=== PATIENT | female | born 1955 | race Caucasian/White ===

== ENCOUNTER → 2017-12-16 | Outpatient (CLI) | payer BC ==
--- NOTE | 2017-12-16 22:37 | XR ---
EXAMINATION TYPE: XR knee limited LT DATE OF EXAM: 12/16/2017 COMPARISON: NONE HISTORY: 62-year-old female with left knee pain after fall 3 weeks ago TECHNIQUE: 2 views FINDINGS: Moderate knee joint effusion. There is tricompartmental degenerative spurring with at least mild to m oderate medial compartment joint space narrowing and probably moderate joint space narrowing in the p atellofemoral compartment. Extensor mechanism is intact. No acute fracture or dislocation seen. IMPRESSION: 1. Tricompartmental osteoarthrosis. No acute osseous abnormality seen. 2. Moderate knee joint effusion. If concern for internal derangement or occult osseous injury, MRI ca n be performed.
== END | disposition home or self-care (01) ==
LOC: RADXRYALE 12:48
PROVIDERS: ATTEND Internal Medicine
DX: M17.12 Unilateral primary osteoarthritis, left knee (principal); M25.462 Effusion, left knee

== ENCOUNTER → 2020-01-02 | Outpatient (CLI) | payer MEDICARE, BC ==
--- NOTE | 2020-01-02 10:59 | CT ---
EXAMINATION TYPE: CT brain wo con DATE OF EXAM: 01/02/2020 COMPARISON: None HISTORY: Multiple recent falls, ALEXIS CT DLP: 1121 mGycm Automated exposure control for dose reduction was used. TECHNIQUE: CT scan of the head is performed without contrast. FINDINGS: There is no acute intracranial hemorrhage or midline shift identified. There is diffuse v entricular and sulcal prominence consistent with diffuse age-related cerebral atrophy. There are few areas of low-attenuation in the periventricular white matter most commonly related to sequela of chr onic small vessel ischemic change. The globes are intact and the visualized sinuses are clear. Front al sinuses are incidentally noted to be aplastic. Partially empty sella turcica seen. IMPRESSION: No acute intracranial hemorrhage or midline shift. There mild burden nonspecific white matter change, most commonly on the basis of chronic microangiopathy.
--- NOTE | 2020-01-02 11:30 | XR ---
EXAMINATION TYPE: XR shoulder complete RT DATE OF EXAM: 01/02/2020 COMPARISON: NONE HISTORY: Pain TECHNIQUE: Shoulder examined in 3 projections FINDINGS: The humeral head articulates with the glenoid. The acromio-clavicular junction is normal. No acute fractures or dislocations are evident. A follow up study can be performed 7-10 days from acute trauma for continued pain. IMPRESSION: 1. Normal three-view right Shoulder
--- NOTE | 2020-01-02 11:32 | XR ---
EXAMINATION TYPE: XR elbow complete RT DATE OF EXAM: 01/02/2020 COMPARISON: None HISTORY: Left elbow pain TECHNIQUE: Three-view right elbow FINDINGS: Radial head aligns normally with the humerus. No acute fracture or dislocation is evident. No subacute fractures are evident. Anterior fat pad is normal. No elevation of posterior fat pad is e vident. Follow-up exams can be performed 7-10 days from acute trauma for continued pain. IMPRESSION: 1. Normal three-view right elbow
== END | disposition home or self-care (01) ==
LOC: RADCTMAIN 10:25
PROVIDERS: ATTEND Internal Medicine
DX: R90.89 Other abnormal findings on diagnostic imaging of central nervous system (principal); M25.522 Pain in left elbow; M25.512 Pain in left shoulder
CPT/HCPCS: 70450

== ENCOUNTER → 2020-07-09 | Outpatient (CLI) | payer MEDICARE, BC ==
--- NOTE | 2020-07-09 18:42 | US ---
EXAMINATION TYPE: US venous doppler duplex LE RT DATE OF EXAM: 07/09/2020 6:11 PM COMPARISON: [facility] 2012 CLINICAL HISTORY: I80.9 Phlebitis and thrombophlebitis of unspecified. Pain in right leg x 5 months. Patient on coumadin. SIDE PERFORMED: Right TECHNIQUE: The lower extremity deep venous system is examined utilizing real time linear array sonog joya with graded compression, doppler sonography and color-flow sonography. VESSELS IMAGED: External Iliac Vein (EIV) Common Femoral Vein Deep Femoral Vein Greater Saphenous Vein * Femoral Vein Popliteal Vein Small Saphenous Vein * Proximal Calf Veins (* superficial vessels) Right Leg: No evidence of DVT in veins imaged at this time from prox calf veins to EIV. IMPRESSION: 1. Right lower extremity ultrasound negative for deep venous thrombosis.
== END | disposition home or self-care (01) ==
LOC: RADUSMAIN 17:35
PROVIDERS: ATTEND Orthopaedic Surgery
DX: M25.561 Pain in right knee (principal); I80.9 Phlebitis and thrombophlebitis of unspecified site; M79.661 Pain in right lower leg

== ENCOUNTER → 2021-12-18 | Outpatient (CLI) | payer MEDICARE ==
--- NOTE | 2021-12-18 12:21 | XR ---
EXAMINATION TYPE: XR chest 2V DATE OF EXAM: 12/18/2021 COMPARISON: None HISTORY: 66-year-old female [id number], cough TECHNIQUE: Frontal and lateral views FINDINGS: Heart is mildly enlarged. Possible bilateral hilar prominence related to large central pulmonary nikole thong. Double convex marginated opacity projecting at the right heart border, possible dilated left at rium. Some strandy atelectasis in the lower lungs. No consolidation or pleural effusion. Mild to mode rate degenerative disc disease throughout the thoracic spine with accentuated thoracic kyphosis. IMPRESSION: Mild cardiomegaly. Possible underlying pulmonary arterial hypertension. Some strandy bibasilar atelec tasis. Otherwise, no acute process seen.
== END | disposition home or self-care (01) ==
LOC: RADXRYALE 11:39
PROVIDERS: ATTEND Internal Medicine
DX: I51.7 Cardiomegaly (principal); J98.11 Atelectasis
CPT/HCPCS: 71046

== ENCOUNTER → 2022-01-02 | Outpatient (CLI) | payer MEDICARE ==
[2022-01-02 16:00] LABS: African American GFR (CKD) 106.5 (60.0-200.0); Anion Gap 13.3 mmol/L (10.00-18.00); Blood Urea Nitrogen 11.4 mg/dL (9.0-27.0); Carbon Dioxide 20.6 mmol/L (20.0-27.5); Non-African American GFR(CKD) 91.9 (60.0-200.0); Potassium 4.4 mmol/L (3.5-5.5)
[2022-01-02 16:06] LABS: HCT 40.8 % (37.2-46.3); HGB 12.5 g/dL (12.0-15.0); MCH 28.7 pg (27.0-32.0); MCHC 30.6 g/dL (32.0-37.0); MCV 93.6 fL (80.0-97.0); Mean Platelet Volume 10.6 fL (9.5-12.2); NRBC Per 100 WBC 0 /100 WBCS (0.0-0.0); Platelet Count 346 X 10*3/uL (140-440); RBC 4.36 X 10*6/uL (4.10-5.20); RDW 14.5 % (11.5-14.5); WBC 9.53 X 10*3/uL (4.50-10.00)
[2022-01-03 13:47] LABS: Coronavirus SARS CoV-2 Not Detected (Not Detected)
== END | disposition home or self-care (01) ==
LOC: LABPAT 08:42
PROVIDERS: ATTEND Internal Medicine Cardiovascular Disease
DX: Z01.812 Encounter for preprocedural laboratory examination (principal); Z20.822 Contact with and (suspected) exposure to COVID-19; I48.0 Paroxysmal atrial fibrillation
CPT/HCPCS: 80051; 82565; 84520; 85027; U0003; U0005

== ENCOUNTER → 2022-01-07 | Day surgery (SDC) | payer MEDICARE ==
[2022-01-05 15:57] VITALS: BMI 42.5
[~2022-01-07] MED LIST: MIDAZOLAM 2 MG/2 ML VIAL IV ONE; SODIUM CHLORIDE 0.9% 500 ML 500 ML IV ONE; fentaNYL (PF) 50 MCG/ML 2 ML AMP IV ONE; fentaNYL (PF) 50 MCG/ML 2 ML AMP ONE
[2022-01-07 07:45] LABS: Glucose,Whole Blood 117 mg/dL (75-99)
[2022-01-07 07:58] LABS: INR 2.2 (<1.2); Prothrombin Time 21.7 sec (9.0-12.0)
[2022-01-07] MEDS: BENZOCAINE SPRAY 1 CAN TOPICAL ONE ×2 (08:53→09:03)
[2022-01-07 09:02] VITALS: RESP 16
[2022-01-07 09:54] VITALS: PULSE 58
[2022-01-07 10:45] VITALS: BP 145/61
--- NOTE | 2022-01-12 13:37 | ECHOT ---
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 PROCEDURE NOTE: After obtaining informed consent, transesophageal echocardiogram was performed in left lateral position using an Omniplane probe. Local and IV sedation were obtained with xylocaine spray, intravenous Versed and fentanyl. Patient tolerated the procedure well without any obvious immediate complications. Total sedation time was 10 minutes. FINDINGS: 1. Mitral valve appears thickened and the leaflet tips are calcified, anterior leaflet more than the posterior. There is restriction of the posterior leaflet mobility. The mean gradient across the valve is 10 mm with a peak gradient of 20 mm, consistent with moderate mitral stenosis. There is mild to moderate eccentric jet of mitral regurgitation noted. 2. Aortic valve is a 3-leaflet valve and appears mildly calcified with severe aortic regurgitation. Aortic root measures within normal limits. 3. Tricuspid valve is anatomically normal. There is mild tricuspid regurgitation noted. 4. There is no evidence of ohnj-yf-dyivc shunt by color-flow Doppler or peyci-di-mloy shunt by agitated saline contrast study across the interatrial septum. 5. Left atrium appears moderately enlarged. 6. Right atrium appears mildly enlarged. 7. Right ventricle is mildly enlarged. CONCLUSIONS: 1. Rheumatic heart disease with moderate mitral stenosis and severe aortic regurgitation. There is mild to moderate mitral regurgitation also noted. 2. Left atrium is enlarged. 3. Mitral valve leaflets appear thickened and calcified, anterior leaflet more than the posterior. There is restriction in the leaflet mobility. PLAN: Patient will undergo cardiac catheterization and will be referred for mitral and aortic valve surgery. She has moderate pulmonary hypertension with an RVSP of around 40 mm. MMODL / IJN: [id number] /
== END ==
LOC: CATHCVL 07:20
PROVIDERS: ATTEND Internal Medicine Cardiovascular Disease
DX: I27.20 Pulmonary hypertension, unspecified (principal); I48.0 Paroxysmal atrial fibrillation; Z79.01 Long term (current) use of anticoagulants; Z86.73 Personal history of transient ischemic attack (TIA), and cerebral infarction without residual deficits; I10 Essential (primary) hypertension; E78.2 Mixed hyperlipidemia; Z79.84 Long term (current) use of oral hypoglycemic drugs; Z79.52 Long term (current) use of systemic steroids; Z79.899 Other long term (current) drug therapy
CPT/HCPCS: 93312; 93320; 93325; 85610; J2250; J3010

== ENCOUNTER 2022-01-21 08:26 | Day surgery (SDC) | payer MEDICARE ==
[2022-01-19 13:49] VITALS: BMI 42.3
[~2022-01-21 08:26] MED LIST changes: +ALPRAZolam 0.25 MG TAB PO PRN; +ALPRAZolam 0.5 MG TAB PO PRN; +ASPIRIN 325 MG TAB PO STA; +ATORVASTATIN 80 MG TAB PO STA; -MIDAZOLAM 2 MG/2 ML VIAL IV ONE; +NITROGLYCERIN SL TABS 0.4 MG TAB SUBLINGUAL PRN; +SODIUM CHLORIDE 0.9% 1,000 ML in EMPTY BAG 1 BAG IV SCH; -SODIUM CHLORIDE 0.9% 500 ML 500 ML IV ONE; -fentaNYL (PF) 50 MCG/ML 2 ML AMP IV ONE; -fentaNYL (PF) 50 MCG/ML 2 ML AMP ONE
[2022-01-21] MEDS ORDERED: SODIUM CHLORIDE 0.9% 1,000 ML IV ONE (08:41)
[2022-01-21 08:53] LABS: Glucose,Whole Blood 119 mg/dL (75-99)
[2022-01-21 09:19] LABS: Prothrombin Time 10.4 sec (9.0-12.0)
[2022-01-21] MEDS ORDERED: LIDOCAINE 1% INJ 10MG/ML (20 ML MDV) ONE (11:02)
[2022-01-21] MEDS ORDERED: fentaNYL (PF) 50 MCG/ML 2 ML AMP ONE (11:02)
[2022-01-21] MEDS ORDERED: HEPARIN SODIUM 1,000 UN/ML (10ML VL) ONE (11:03)
[2022-01-21] MEDS ORDERED: VERAPAMIL 2.5 MG/ML 2 ML AMP ONE (11:03)
[2022-01-21] MEDS ORDERED: MIDAZOLAM 2 MG/2 ML VIAL IV ONE (11:28)
[2022-01-21] MEDS ORDERED: fentaNYL (PF) 50 MCG/ML 2 ML AMP IV ONE (11:28)
[2022-01-21] MEDS ORDERED: LIDOCAINE 1% INJ 10MG/ML (20 ML MDV) SQ ONE (11:29)
[2022-01-21 11:58] LABS: O2 Sat Blood Gas 65.5 %
[2022-01-21 12:00] LABS: O2 Sat Blood Gas 65.8 %
[2022-01-21 12:01] LABS: O2 Sat Blood Gas 98.5 %
[2022-01-21 12:03] LABS: O2 Sat Blood Gas 67.8 %
[2022-01-21] MEDS ORDERED: ENALAPRILAT 1.25 MG/ML 1 ML VIAL ONE (12:08)
[2022-01-21] MEDS ORDERED: RX INFO: IV CONTRAST WAS GIVEN 1 EACH MISC MISCELLANE PRN (12:10)
[2022-01-21] MEDS ORDERED: SODIUM CHLORIDE 0.9% 1,000 ML IV SCH (12:15)
[2022-01-21] MEDS ORDERED: ENALAPRILAT 1.25 MG/ML 1 ML VIAL IV ONE (12:17)
--- NOTE | 2022-01-21 14:06 | CC ---
CARDIAC CATHETERIZATION REPORT RIGHT AND LEFT HEART CATHETERIZATION NOTE: INDICATION: Multivalvular heart disease, including aortic regurgitation and mitral stenosis secondary to rheumatic heart disease. PROCEDURE NOTE: After obtaining informed consent, right and left heart catheterizations were performed via the right and left femoral arteries using standard catheters. Right and left size 4 Monica catheters were used to engage the right and left coronary arteries and a pigtail catheter was used to obtain hemodynamics and aortogram. The right heart catheterization was performed using a [place]-Janneth catheter. Patient tolerated the procedure well without any obvious immediate complications. Total sedation time was 59 minutes. FINDINGS: HEMODYNAMICS: The left ventricular end-diastolic pressure was 11 mm. There is no significant gradient across the aortic valve. LEFT VENTRICULOGRAM: Left ventriculogram was not performed. AORTOGRAM: Aortogram showed severe aortic regurgitation. SELECTIVE INJECTION OF THE CORONARIES: Left main coronary artery is a short vessel and is free of stenosis. It divides into left anterior descending coronary artery and circumflex coronary artery. LAD and its branches, circumflex coronary artery and its branches are free of significant stenosis. Right coronary artery is a dominant vessel and is free of significant disease. RIGHT HEART CATHETERIZATION: The cardiac output by the thermodilution technique was 5.6 and the cardiac index was 2.84. There is no evidence of yyvv-ld-tkezu or mezgi-sm-gwme shunt. Saturations: One showed a femoral arterial saturation of 98%, PA saturation of 65.8, RV saturation of 65.8 and the RA saturation of 62.8. Cardiac output using the Bogdan method was 5.54 with an index of 2.79. The mean right atrial pressure was 9 mm. RV systolic pressure was 50 mm while the the diastolic pressure was 18 mm. The PA systolic was 48 mm while the diastolic was 17 mm. Pulmonary capillary wedge pressure was 20 mm. CONCLUSIONS: 1. Normal coronaries. 2. Evidence of pulmonary hypertension. 3. Ascending aortic aneurysm. PLAN: I am going to refer the patient for aortic valve replacement, either mitral valvuloplasty or mitral valve replacement. I am going to talk to the patient in my office and decide on further course of action. MMODL / IJN: [id number] /
[2022-01-21 19:12] VITALS: BP 146/46; PULSE 59; RESP 18; TEMP 97.7
== END 2022-01-21 20:33 | disposition home or self-care (01) ==
LOC: CATHCVL 08:26 → 6NMEDSUR 13:29 → CATHCVL 20:33
PROVIDERS: ATTEND Internal Medicine Cardiovascular Disease
DX: I08.0 Rheumatic disorders of both mitral and aortic valves (principal); I10 Essential (primary) hypertension; I27.20 Pulmonary hypertension, unspecified; Z79.899 Other long term (current) drug therapy; Z79.01 Long term (current) use of anticoagulants
CPT/HCPCS: 93460; 93567; 85018; 82810; 85610; C1769 ×2; C1894 ×2; J2250; J2001; J3010

== ENCOUNTER 2022-04-27 19:33 | Observation (INO) | payer MEDICARE ==
[2022-04-28] LABS: HCT 28.5 % (34.0-46.0); HGB 8.9 gm/dL (11.4-16.0); Hypochromasia Marked; MCH 29.3 pg (25.0-35.0); MCHC 31.4 g/dL (31.0-37.0); MCV 93.4 fL (80.0-100.0); Mean Platelet Volume 7.8; Platelet Count 347 k/uL (150-450); Poikilocytosis Slight; RBC 3.05 m/uL (3.80-5.40); RDW 15.7 % (11.5-15.5); WBC 13.9 k/uL (3.8-10.6)
[2022-04-28 00:07] LABS: INR 4.8 (<1.2); Partial Thromboplastin Time 37.1 sec (22.0-30.0); Prothrombin Time 48.2 sec (9.0-12.0)
--- NOTE | 2022-04-28 00:10 | XR ---
EXAMINATION TYPE: XR chest 2V DATE OF EXAM: 04/28/2022 COMPARISON: 12/18/2021 HISTORY: Valve surgery TECHNIQUE: Single view FINDINGS: There are sternal wires. Heart is enlarged. There is cardiac valve surgery. There is mild p ulmonary congestion. There is blunting of the costophrenic angles. IMPRESSION: There are bilateral pleural effusions and basilar atelectasis which is new compared to ol d exam. Heart increased compared to old exam. There is probably minimal heart failure.
[2022-04-28 00:12] LABS: ALT 19 U/L (4-34); AST 39 U/L (14-36); African American GFR (CKD) >90 (>60 ml/min/1.73 sqM); Albumin 3.8 g/dL (3.5-5.0); Alkaline Phosphatase 88 U/L (38-126); Anion Gap 8 mmol/L; Blood Urea Nitrogen 7 mg/dL (7-17); Calcium 8.3 mg/dL (8.4-10.2); Carbon Dioxide 27 mmol/L (22-30); Chloride 100 mmol/L (98-107); Glucose 110 mg/dL (74-99); Non-African American GFR(CKD) 80 (>60 ml/min/1.73 sqM); Potassium 4.1 mmol/L (3.5-5.1); Sodium 135 mmol/L (137-145); Total Bilirubin 0.9 mg/dL (0.2-1.3)
[2022-04-28] MEDS ORDERED: NALOXONE 0.4 MG/ML 1 ML VIAL IV PRN (00:50)
[2022-04-28] MEDS ORDERED: MORPHINE SULFATE 4 MG/ML SYRINGE IV PRN (00:50)
[2022-04-28] MEDS ORDERED: ONDANSETRON 4 MG/2 ML VIAL IVP PRN (00:50)
--- NOTE | 2022-04-28 00:53 | ED ---
Recheck HPI - General Source: patient Mode of arrival: ambulatory Limitations: no limitations <Mayo Garcia - Last Filed: 04/28/22 00:53> <Olga Wood - Last Filed: 04/28/22 03:45> - General Chief Complaint: Recheck/Abnormal Lab/Rx Stated Complaint: Low Hemoglobin, Open Heart Surgery on 04/13 Time Seen by Provider: 04/27/22 22:56 - History of Present Illness Initial Comments: Patient is a 66-year-old female presenting stating that her PCP sent her for low hemoglobin. History of diabetes, hypertension, hyperlipidemia. Patient received an aortic and mitral valve replacement on 04/13 at [facility]. Patient was discharged from the hospital yesterday, she is currently on warfarin. Patient saw Dr. Pang in the office today, patient states that Dr. Pang called her this evening stating that her hemoglobin was low and she needed to present to the ER for further evaluation. Patient is complaining of some incision discomfort, but no chest pain. She admits to some shortness of breath on exertion. She denies any nausea, vomiting, abdominal pain, diaphoresis, headache, vision changes, back pain. (Olga Wood) - Related Data Home Medications Medication Instructions Recorded Confirmed Ascorbic Acid [Vitamin C] 500 mg PO DAILY 01/05/22 01/21/22 Atorvastatin [Lipitor] 20 mg PO DAILY 01/05/22 01/21/22 Magnesium 200 mg PO DAILY 01/05/22 01/21/22 Omeprazole 20 mg PO DAILY 01/05/22 01/21/22 Warfarin [Coumadin] 5 mg PO MOWEFR 01/05/22 01/19/22 Warfarin [Coumadin] 7.5 mg PO SUTUTHSA 01/05/22 01/21/22 Zinc 50 mg PO DAILY 01/05/22 01/21/22 atenoloL [Tenormin] 25 mg PO DAILY 01/05/22 01/21/22 metFORMIN HCL 500 mg PO DAILY 01/05/22 01/21/22 Allergies Allergy/AdvReac Type Severity Reaction Status Date / Time latex Allergy Rash/Hives Verified 04/27/22 21:33 Review of Systems ROS Other: All systems not noted in ROS Statement are negative. <Mayo Garcia - Last Filed: 04/28/22 00:53> ROS Other: All systems not noted in ROS Statement are negative. <Olga Wood - Last Filed: 04/28/22 03:45> ROS Statement: Those systems with pertinent positive or pertinent negative responses have been documented in the HPI. Past Medical History Past Medical History: CVA/TIA, Diabetes Mellitus, GERD/Reflux, Hypertension Additional Past Medical History / Comment(s): NUMEROUS MINI STROKES History of Any Multi-Drug Resistant Organisms: None Reported Past Surgical History: Section, Joint Replacement Additional Past Surgical History / Comment(s): LT TKA, BILAT KNEE ARTHROSCOPY, FCO-01/07/22, COLONOSCOPY, OPEN HEART Past Anesthesia/Blood Transfusion Reactions: No Reported Reaction Past Psychological History: No Psychological Hx Reported Smoking Status: Never smoker Past Alcohol Use History: None Reported - Past Family History Mother Family Medical History: Cancer <Mayo Garcia - Last Filed: 04/28/22 00:53> General Exam Limitations: no limitations <Mayo Garcia - Last Filed: 04/28/22 00:53> Limitations: no limitations General appearance: alert, in no apparent distress Head exam: Present: atraumatic, normocephalic, normal inspection Eye exam: Present: normal appearance, EOMI. Absent: scleral icterus, periorbital swelling Neck exam: Present: normal inspection Respiratory exam: Present: normal lung sounds bilaterally. Absent: respiratory distress, wheezes, rales, rhonchi, stridor Cardiovascular Exam: Present: regular rate, normal rhythm, clicks. Absent: rubs, gallop Neurological exam: Present: alert, oriented X3, CN II-XII intact Psychiatric exam: Present: normal affect, normal mood Skin exam: Present: warm, dry, normal color, other (Surgical scar over sternum). Absent: rash <Olga Wood - Last Filed: 04/28/22 03:45> Course Vital Signs 04/27/22 04/28/22 21:31 01:37 Temperature 97.8 F Pulse Rate 97 91 Respiratory 18 18 Rate Blood Pressure 123/69 137/82 O2 Sat by Pulse 100 96 Oximetry Medical Decision Making - Lab Data Result diagrams: 04/27/22 23:54 04/27/22 23:54 <Mayo Garcia - Last Filed: 04/28/22 00:53> - Lab Data Result diagrams: 04/27/22 23:54 04/27/22 23:54 <Olga Wood - Last Filed: 04/28/22 03:45> - Medical Decision Making Patient is a 66-year-old female who presented to the ER per her PCP's recommendation. She received an aortic and mitral valve replacement on 04/13 [facility], she was discharged yesterday. She saw Dr. Pang in the office and had labs drawn today, she was called this evening I Dr. Pang's office who said that her hemoglobin was low and she needed to report to the ER. Patient is currently on warfarin. She is not complaining of any chest pain. She admits to discomfort over her incision. She admits to some shortness of breath on exertion. On examination clicks are heard. Hemoglobin is 8.9. INR is 4.8. PTT is 48.2. A PTT is 37.1. Troponin is 0.274. EKG shows sinus rhythm with rate of 92, with inverted T waves in V1, V2, V3. X-ray shows bilateral pleural effusions and basilar atelectasis, there is probably mild h eart failure. Patient will be admitted, cardiology is consulted. I discussed this case with my attending Dr. Garcia. (Olga Wood) - Lab Data Lab Results 04/27/22 04/27/22 04/27/22 Range/Units 23:54 23:54 23:54 WBC 13.9 H (3.8-10.6) k/uL RBC 3.05 L (3.80-5.40) m/uL Hgb 8.9 L (11.4-16.0) gm/dL Hct 28.5 L (34.0-46.0) % MCV 93.4 (80.0-100.0) fL MCH 29.3 (25.0-35.0) pg MCHC 31.4 (31.0-37.0) g/dL RDW 15.7 H (11.5-15.5) % Plt Count 347 (150-450) k/uL MPV 7.8 Neutrophils % (Manual) 79 % Band Neuts % (Manual) 1 % Lymphocytes % (Manual) 13 % Monocytes % (Manual) 5 % Eosinophils % (Manual) 2 % Neutrophils # (Manual) 11.10 H (1.3-7.7) k/uL Lymphocytes # (Manual) 1.81 (1.0-4.8) k/uL Monocytes # (Manual) 0.70 (0-1.0) k/uL Eosinophils # (Manual) 0.28 (0-0.7) k/uL Nucleated RBCs 0 (0-0) /100 WBC Manual Slide Review Performed Polychromasia Present Hypochromasia Marked Poikilocytosis Slight Anisocytosis (manual) Present PT (9.0-12.0) sec INR (<1.2) APTT (22.0-30.0) sec Sodium 135 L (137-145) mmol/L Potassium 4.1 (3.5-5.1) mmol/L Chloride 100 (98-107) mmol/L Carbon Dioxide 27 (22-30) mmol/L Anion Gap 8 mmol/L BUN 7 (7-17) mg/dL Creatinine 0.77 (0.52-1.04) mg/dL Est GFR (CKD-EPI)AfAm >90 (>60 ml/min/1.73 sqM) Est GFR (CKD-EPI)NonAf 80 (>60 ml/min/1.73 sqM) Glucose 110 H (74-99) mg/dL Plasma Lactic Acid Ar 1.1 (0.7-2.0) mmol/L Calcium 8.3 L (8.4-10.2) mg/dL Total Bilirubin 0.9 (0.2-1.3) mg/dL AST 39 H (14-36) U/L ALT 19 (4-34) U/L Alkaline Phosphatase 88 (38-126) U/L Troponin I (0.000-0.034) ng/mL NT-Pro-B Natriuret Pep pg/mL Total Protein 7.0 (6.3-8.2) g/dL Albumin 3.8 (3.5-5.0) g/dL Blood Type Blood Type Confirm Blood Type Recheck Bld Type Recheck Status Antibody Screen Spec Expiration Date 04/27/22 04/27/22 04/27/22 Range/Units 23:54 23:54 23:54 WBC (3.8-10.6) k/uL RBC (3.80-5.40) m/uL Hgb (11.4-16.0) gm/dL Hct (34.0-46.0) % MCV (80.0-100.0) fL MCH (25.0-35.0) pg MCHC (31.0-37.0) g/dL RDW (11.5-15.5) % Plt Count (150-450) k/uL MPV Neutrophils % (Manual) % Band Neuts % (Manual) % Lymphocytes % (Manual) % Monocytes % (Manual) % Eosinophils % (Manual) % Neutrophils # (Manual) (1.3-7.7) k/uL Lymphocytes # (Manual) (1.0-4.8) k/uL Monocytes # (Manual) (0-1.0) k/uL Eosinophils # (Manual) (0-0.7) k/uL Nucleated RBCs (0-0) /100 WBC Manual Slide Review Polychromasia Hypochromasia Poikilocytosis Anisocytosis (manual) PT 48.2 H (9.0-12.0) sec INR 4.8 H (<1.2) APTT 37.1 H (22.0-30.0) sec Sodium (137-145) mmol/L Potassium (3.5-5.1) mmol/L Chloride (98-107) mmol/L Carbon Dioxide (22-30) mmol/L Anion Gap mmol/L BUN (7-17) mg/dL Creatinine (0.52-1.04) mg/dL Est GFR (CKD-EPI)AfAm (>60 ml/min/1.73 sqM) Est GFR (CKD-EPI)NonAf (>60 ml/min/1.73 sqM) Glucose (74-99) mg/dL Plasma Lactic Acid Ar (0.7-2.0) mmol/L Calcium (8.4-10.2) mg/dL Total Bilirubin (0.2-1.3) mg/dL AST (14-36) U/L ALT (4-34) U/L Alkaline Phosphatase (38-126) U/L Troponin I 0.274 H* (0.000-0.034) ng/mL NT-Pro-B Natriuret Pep pg/mL Total Protein (6.3-8.2) g/dL Albumin (3.5-5.0) g/dL Blood Type Blood Type Confirm O Positive Blood Type Recheck Bld Type Recheck Status Antibody Screen Spec Expiration Date 04/27/22 04/28/22 Range/Units 23:54 00:11 WBC (3.8-10.6) k/uL RBC (3.80-5.40) m/uL Hgb (11.4-16.0) gm/dL Hct (34.0-46.0) % MCV (80.0-100.0) fL MCH (25.0-35.0) pg MCHC (31.0-37.0) g/dL RDW (11.5-15.5) % Plt Count (150-450) k/uL MPV Neutrophils % (Manual) % Band Neuts % (Manual) % Lymphocytes % (Manual) % Monocytes % (Manual) % Eosinophils % (Manual) % Neutrophils # (Manual) (1.3-7.7) k/uL Lymphocytes # (Manual) (1.0-4.8) k/uL Monocytes # (Manual) (0-1.0) k/uL Eosinophils # (Manual) (0-0.7) k/uL Nucleated RBCs (0-0) /100 WBC Manual Slide Review Polychromasia Hypochromasia Poikilocytosis Anisocytosis (manual) PT (9.0-12.0) sec INR (<1.2) APTT (22.0-30.0) sec Sodium (137-145) mmol/L Potassium (3.5-5.1) mmol/L Chloride (98-107) mmol/L Carbon Dioxide (22-30) mmol/L Anion Gap mmol/L BUN (7-17) mg/dL Creatinine (0.52-1.04) mg/dL Est GFR (CKD-EPI)AfAm (>60 ml/min/1.73 sqM) Est GFR (CKD-EPI)NonAf (>60 ml/min/1.73 sqM) Glucose (74-99) mg/dL Plasma Lactic Acid Ar (0.7-2.0) mmol/L Calcium (8.4-10.2) mg/dL Total Bilirubin (0.2-1.3) mg/dL AST (14-36) U/L ALT (4-34) U/L Alkaline Phosphatase (38-126) U/L Troponin I (0.000-0.034) ng/mL NT-Pro-B Natriuret Pep 2440 pg/mL Total Protein (6.3-8.2) g/dL Albumin (3.5-5.0) g/dL Blood Type O Positive Blood Type Confirm Blood Type Recheck No Previous Record Bld Type Recheck Status CABO Indicated Antibody Screen POSITIVE Spec Expiration Date 05/01/20222310 Disposition Is patient prescribed a controlled substance at d/c from ED?: No <Mayo Garcia - Last Filed: 04/28/22 00:53> Decision to Admit Reason: Admit from EC Decision Date: 04/28/22 Decision Time: 00:53 <Olga Wood - Last Filed: 04/28/22 03:45> Clinical Impression: NSTEMI (non-ST elevated myocardial infarction), Anemia, CHF (congestive heart failure) Disposition: ADMITTED IP TO THIS HOSP Condition: Serious
[2022-04-28 02:18] LABS: Band Neutrophils % 1 %; Eosinophils # (M) 0.28 k/uL (0-0.7); Lymphocytes # (M) 1.81 k/uL (1.0-4.8); Neutrophils % (M) 79 %; Nucleated Red Blood Cells 0 /100 WBC (0-0); Total Cells Counted 100
[2022-04-28 02:19] LABS: Anisocytosis (M) Present; Polychromasia Present
--- NOTE | 2022-04-28 10:14 | P.CRDCN ---
History of Present Illness History of present illness: HISTORY OF PRESENTING ILLNESS This is a pleasant 66-year-old female past medical history significant for rheumatic heart disease with severe aortic regurgitation, moderate mitral stenosis and moderate pulmonary hypertension, recent aortic valve and mitral valve replacement at [facility] on 04/13/2022, recently discharged from [facility] in 04/26/2022, history of hypertension, paroxysmal atrial fibrillation on Coumadin. she follows in the office with Dr. Edwards. We have been asked to see in consultation for elevated troponin.Patient recently discharged from [facility] on Wednesday, she states that she has been feeling well at home recovering, no complaints. She had her labs drawn at home and was told that her hemoglobin was low and states her primary care provider totally go to the emergency department. She is unsure what her hemoglobin level was. She denies a chest pain, worsening shortness of breath, lightheadedness, dizziness, syncope or near syncope, she denies any symptoms of orthopnea or PND. She denies any bleeding, dark or tarry stools. She denies any complaints on exam. DIAGNOSTICS EKG revealssinus rhythm, heart rate 92, right bundle-branch block, left anterior fascicular block, nonspecific T-wave abnormalities, no acute ischemia noted Chest xray bilateral pleural effusions, basilar atelectasis. Laboratory reviewed, hemoglobin 8.9, troponin 0.27, 0.21, WBC 13.9, platelets 347, INR 4.8, sodium 135, potassium 4.1, BUN 7, serum current 0.7 Current home medications include Coumadin 10 mg nightly, metformin, metoprolol titrate 20.5 mg twice a day, Bumex 2 mg daily, atorvastatin 20 mg nightly, aspirin 81 mg daily Cardiac catheterization 12/2021-revealed normal coronary arteries, pulmonary hypertension FCO 12/2021 revealed rheumatic heart disease moderate mitral stenosis, severe aortic regurgitation, mild to moderate mitral regurgitation, left atrium is enlarged, mitral valve leaflets appear thickened and calcified anterior leaflet more than the posterior there is restriction in leaflet mobility. Moderate pulmonary hypertension with RVSP of 40 mmHg REVIEW OF SYSTEMS At the time of my exam: CONSTITUTIONAL: Denies fever or chills. CARDIOVASCULAR: Denies chest pain, shortness of breath, orthopnea, PND or palpitations. RESPIRATORY: Denies cough. GASTROINTESTINAL: Denies abdominal pain, diarrhea, constipation, nausea or vomiting. MUSCULOSKELETAL: Denies myalgias. NEUROLOGIC: Denies numbness, tingling, headacbe or weakness. ENDOCRINE: Denies fatigue, weight change, polydipsia or polyurina. GENITOURINARY: Denies burning, hematuria or urgency with micturation. HEMATOLOGIC: Denies history of anemia or bleeding. PHYSICAL EXAMINATION Blood pressure 129/85, heart rate 100, afebrile, oxygen saturations 99% on room air CONSTITUTIONAL: No apparent distress. HEENT: Head is normocephalic. Pupils are equal, round. Sclerae anicteric. Mucous membranes of the mouth are moist. No JVD. No carotid bruit. CHEST EXAMINATION: Lungs are clear to auscultation. No chest wall tenderness is noted on palpation or with deep breathing. HEART EXAMINATION: Regular rate and rhythm. S1, S2 heard. No murmurs, gallops or rub. ABDOMEN: Soft, nontender. Positive bowel sounds. EXTREMITIES: 2+ peripheral pulses, no lower extremity edema and no calf tenderness. NEUROLOGIC EXAMINATION: Patient is awake, alert and oriented x3. ASSESSMENT Anemia, likely secondary to recent surgery Recent aortic valve and mitral valve replacement at [facility] on 04/13/2022 Supratherapeutic INR Elevated troponin, likely secondary to recent surgery, Recent cardiac cath in 12/2021 with normal coronary arteries, no acute ischemia noted on EKG, patient without chest pain or shortness of breath Severe aortic regurgitation, moderate mitral stenosis and moderate pulmonary hypertension Hypertension History of paroxysmal atrial fibrillation on Coumadin PLAN Obtain 2D echocardiogram and doppler study to assess cardiac structure and function. Obtain records from [facility] Continue home cardiac medications Monitor PT/INR Further recommendations based on clinical course Nurse practitioner note has been reviewed by physician. Signing provider agrees with the documented findings, assessment, and plan of care. Past Medical History Past Medical History: CVA/TIA, Diabetes Mellitus, GERD/Reflux, Hypertension Additional Past Medical History / Comment(s): NUMEROUS MINI STROKES History of Any Multi-Drug Resistant Organisms: None Reported Past Surgical History: Section, Joint Replacement Additional Past Surgical History / Comment(s): LT TKA, BILAT KNEE ARTHROSCOPY, FCO-01/07/22, COLONOSCOPY, OPEN HEART Past Anesthesia/Blood Transfusion Reactions: No Reported Reaction Past Psychological History: No Psychological Hx Reported Smoking Status: Never smoker Past Alcohol Use History: None Reported - Past Family History Mother Family Medical History: Cancer Medications and Allergies Home Medications Medication Instructions Recorded Confirmed Type Ascorbic Acid [Vitamin C] 500 mg PO DAILY 01/05/22 04/28/22 History Atorvastatin [Lipitor] 20 mg PO HS 01/05/22 04/28/22 History Omeprazole 20 mg PO DAILY 01/05/22 04/28/22 History Zinc 50 mg PO DAILY 01/05/22 04/28/22 History metFORMIN HCL 500 mg PO DAILY 01/05/22 04/28/22 History Acetaminophen Tab [Tylenol] 650 mg PO Q6H PRN 04/28/22 04/28/22 History Albuterol Sulfate [Ventolin HFA] 2 puff INHALATION RT-Q6H PRN 04/28/22 04/28/22 History Alendronate Sodium [Fosamax] 70 mg PO MO 04/28/22 04/28/22 History Aspirin 81 mg PO DAILY 04/28/22 04/28/22 History Bumetanide [Bumex] 1 mg PO DAILY 04/28/22 04/28/22 History Cephalexin [Keflex] 500 mg PO QID 04/28/22 04/28/22 History Cyclobenzaprine [Flexeril] 5 mg PO HS 04/28/22 04/28/22 History Magnesium 250 mg PO DAILY 04/28/22 04/28/22 History Melatonin 6 mg PO HS 04/28/22 04/28/22 History Metoprolol Tartrate [Lopressor] 12.5 mg PO BID 04/28/22 04/28/22 History Potassium Chloride ER [K-Dur 20] 20 meq PO DAILY 04/28/22 04/28/22 History Sennosides/Docusate Sodium [Senna 2 tab PO HS PRN 04/28/22 04/28/22 History Plus 8.6-50 mg Tablet] Warfarin [Coumadin] 10 mg PO HS 04/28/22 04/28/22 History Allergies Allergy/AdvReac Type Severity Reaction Status Date / Time latex Allergy Rash/Hives Verified 04/28/22 07:01 Physical Exam Vitals: Vital Signs Temp Pulse Pulse Resp BP BP Pulse Ox 04/28/22 08:00 97.5 F L 100 16 129/85 99 04/28/22 05:14 97 22 144/79 97 04/28/22 01:37 91 18 137/82 96 04/27/22 21:31 97.8 F 97 18 123/69 100 Intake and Output 04/27/22 04/28/22 04/28/22 22:59 06:59 14:59 Other: Weight 99.79 kg Results 04/27/22 23:54 04/27/22 23:54 Cardiac Enzymes 04/27/22 04/27/22 Range/Units 23:54 23:54 AST 39 H (14-36) U/L Troponin I 0.274 H* (0.000-0.034) ng/mL Coagulation 04/27/22 Range/Units 23:54 PT 48.2 H (9.0-12.0) sec APTT 37.1 H (22.0-30.0) sec CBC 04/27/22 Range/Units 23:54 WBC 13.9 H (3.8-10.6) k/uL RBC 3.05 L (3.80-5.40) m/uL Hgb 8.9 L (11.4-16.0) gm/dL Hct 28.5 L (34.0-46.0) % Plt Count 347 (150-450) k/uL Comprehensive Metabolic Panel 04/27/22 Range/Units 23:54 Sodium 135 L (137-145) mmol/L Potassium 4.1 (3.5-5.1) mmol/L Chloride 100 (98-107) mmol/L Carbon Dioxide 27 (22-30) mmol/L BUN 7 (7-17) mg/dL Creatinine 0.77 (0.52-1.04) mg/dL Glucose 110 H (74-99) mg/dL Calcium 8.3 L (8.4-10.2) mg/dL AST 39 H (14-36) U/L ALT 19 (4-34) U/L Alkaline Phosphatase 88 (38-126) U/L Total Protein 7.0 (6.3-8.2) g/dL Albumin 3.8 (3.5-5.0) g/dL Current Medications Generic Name Dose Route Start Last Admin Trade Name Freq PRN Reason Stop Dose Admin Morphine Sulfate 4 mg 04/28/22 00:50 Morphine Sulfate 4 Mg/Ml Syringe IV Q4HR PRN Severe Pain Naloxone HCl 0.2 mg 04/28/22 00:50 Naloxone 0.4 Mg/Ml 1 Ml Vial IV Q2M PRN Opioid Reversal Ondansetron HCl 4 mg 04/28/22 00:50 Ondansetron 4 Mg/2 Ml Vial IVP Q8HR PRN Nausea And Vomiting Intake and Output 04/27/22 04/28/22 04/28/22 22:59 06:59 14:59 Other: Weight 99.79 kg 04/27/22 23:54 04/27/22 23:54
[2022-04-28] MEDS: BUMETANIDE 1 MG TAB PO SCH (11:05)
[2022-04-28] MEDS: POTASSIUM CHLORIDE ER 20 MEQ TAB.ER PO SCH (11:05)
[2022-04-28] MEDS: MAGNESIUM OXIDE 400 MG TAB PO SCH (11:05)
[2022-04-28] MEDS: METOPROLOL TARTRATE 12.5 MG TAB PO SCH ×2 (11:05→21:44)
[2022-04-28 11:15] LABS: Glucose,Whole Blood 102 mg/dL (70-110)
[2022-04-28] MEDS ORDERED: SENNOSIDES-DOCUSATE SODIUM 1 EACH TAB PO PRN (13:02)
[2022-04-28] MEDS ORDERED: ACETAMINOPHEN TAB 325 MG TAB PO PRN (13:02)
[2022-04-28] MEDS ORDERED: ALBUTEROL HFA INHALER INHALATION PRN (13:02)
[2022-04-28] MEDS ORDERED: CEPHALEXIN 500 MG CAP PO SCH (13:15)
--- NOTE | 2022-04-28 13:29 | HP ---
HISTORY AND PHYSICAL DATE OF SERVICE: 04/28/2022 CHIEF COMPLAINTS: Anemia, weakness. HISTORY OF PRESENT ILLNESS: This 66-year-old woman with a past medical history of multiple medical problems, including severe aortic regurgitation, moderate mitral stenosis, had a recent aortic valve and mitral valve replacement in [facility] by an open-heart procedure. Patient was discharged. The patient went home. The patient apparently was evaluated in the outpatient setting and the blood count was found to be low and the patient was asked to come to the hospital at this time. There is no history of fever, rigors, chills at this time. The troponins were found to be elevated. The patient also had features of CHF on a chest x-ray. Past INR was found to be 4.8. PAST MEDICAL HISTORY: History reviewed, include diabetes type 2, history of GERD, CVA, TIA. HOME MEDICATIONS: Again reviewed and include Keflex. Dose and the rest of medications noted. ALLERGIES: LATEX. FAMILY HISTORY: History of cancer. SOCIAL HISTORY: No history of smoking. REVIEW OF SYMPTOMS: 14 point review of systems negative except as mentioned. PHYSICAL EXAMINATION: Pulse is 95, blood pressure 144/70, respiration 19. HEENT: Conjunctivae normal. NECK: No JVD. CARDIOVASCULAR: S1-S2 prosthetic. Ejection systolic murmur. RESPIRATION: Breath sounds diminished in the bases. A few scattered rhonchi and crackles. ABDOMEN: Soft, obese. LEGS: No edema. No swelling. NERVOUS SYSTEM: Higher functions as mentioned earlier. No focal deficits. SKIN: No ulcer, no rash and no bleeding. JOINTS: No active deforming arthropathy. The sternal wound is healing at this time. LABORATORY DATA: Labs are reviewed. WBC 13.9 and hemoglobin is 8.9. Troponin is noted 0.274. ASSESSMENT: 1. Status post recent mitral valve and aortic valve surgery. 2. Anemia. 3. Increased WBC. 4. Troponin elevated up to 0.274. 5. Congestive heart failure, acute exacerbation. 6. Diabetes mellitus, type 2. 7. Gastroesophageal reflux disease. 8. Hypertension. 9. Multiple transient ischemic attacks. 10.FULL CODE. RECOMMENDATIONS AND DISCUSSION: This 66-year-old woman who presented with multiple complex medical issues, at this time we will monitor the patient closely, continue the current management and symptomatic treatment. We will continue with diuretics. Otherwise cardiology will be consulted. Monitor closely. Repeat labs. Supplemental iron. See orders for details. Limit fluid intake to 1200 mL per 24 hours. Overall prognosis guarded because of multiple complex medical issues. Further recommendations to follow. A copy of dictation being forwarded to Dr. Pang, who is the primary physician. KRZYSZTOFL / INEZN: [id number] /
[2022-04-28 16:38] LABS: Glucose,Whole Blood 96 mg/dL (70-110)
[2022-04-28 16:57] LABS: Appearance,Urine Clear (Clear); Bilirubin,Urine Negative (Negative); Blood,Urine Negative (Negative); Color,Urine Light Yellow; Glucose,Urine (UA) Negative (Negative); Ketones,Urine 1+ (Negative); Leukocyte Esterase,Urine Negative (Negative); Nitrite,Urine Negative (Negative); PH, Urine 7.5 (5.0-8.0); Protein,Urine Negative (Negative); Specific Gravity,Urine 1.005 (1.001-1.035); Urobilinogen,Urine <2.0 mg/dL (<2.0)
--- NOTE | 2022-04-28 17:13 | CA ---
Transthoracic Echo Report Name: Nancy Jimenez Age: 66 Gender: F : 1955 Exam Date: 04/28/2022 11:28 Exam Location: [place] [facility] Ht (in): 60 Wt (lb): 220 Ordering Physician: Danica Flower Attending/Referring Phys: Hog Ribber Thea Mclaughlin, COLEEN Procedure CPT: Indications: LV function. Recent aortic/ mitral valve replace Cardiac Hx: PT IS S/P FROM [facility]: MECHANICAL REPLACEMENT OF AORTIC Technical Quality: Technically difficult study Contrast 1: Total Dose (mL): Contrast 2: Total Dose (mL): MEASUREMENTS (Male / Female) Normal Values 2D ECHO LV Diastolic Diameter PLAX 4.7 cm 4.2 - 5.9 / 3.9 - 5.3 cm LV Systolic Diameter PLAX 3.3 cm IVS Diastolic Thickness 1.3 cm 0.6 - 1.0 / 0.6 - 0.9 cm LVPW Diastolic Thickness 1.7 cm 0.6 - 1.0 / 0.6 - 0.9 cm LV Relative Wall Thickness 0.6 RV Internal Dim ED PLAX 3.2 cm DOPPLER AV Peak Velocity 303.4 cm/s AV Peak Gradient 36.8 mmHg AV Mean Velocity 210.2 cm/s AV Mean Gradient 19.9 mmHg AV Velocity Time Integral 45.6 cm LVOT Peak Velocity 149.0 cm/s LVOT Peak Gradient 8.9 mmHg MV Peak Velocity 199.1 cm/s MV Peak Gradient 15.9 mmHg MV Mean Velocity 99.1 cm/s MV Mean Gradient 5.2 mmHg MV Velocity Time Integral 37.4 cm TR Peak Velocity 280.5 cm/s TR Peak Gradient 31.5 mmHg Right Ventricular Systolic Press 36.5 mmHg FINDINGS Left Ventricle Left ventricular ejection fraction is estimated at 50-55 %. Right Ventricle Normal right ventricular size and function. Mild pulmonary hypertension. Right Atrium Normal right atrial size. Left Atrium Normal left atrial size. Mitral Valve S/P MECHANICAL MV Aortic Valve Tricuspid Valve Structurally normal tricuspid valve. Pulmonic Valve Pulmonic valve not well visualized. Pericardium Small pericardial effusion. Aorta Normal size aortic root and proximal ascending aorta. CONCLUSIONS Normal LV systolic function Normal functioning of the mechanical mitral and aortic valve Peak gradient across aortic valve is 36 mm wide and the mean gradient is 20 mm Technically suboptimal study Previewed by: Dr. Richard Edwards MD (Electronically Signed) Final Date: 28 April 2022 17:13
[2022-04-28] MEDS ORDERED: MELATONIN 3 MG TABLET PO SCH (21:00)
[2022-04-28] MEDS ORDERED: CYCLOBENZAPRINE 5 MG TAB PO SCH (21:00)
[2022-04-28] MEDS ORDERED: ATORVASTATIN 20 MG TAB PO SCH (21:00)
[2022-04-28] MEDS: CEPHALEXIN 500 MG CAP PO SCH (21:44)
[2022-04-29] MEDS: CEPHALEXIN 500 MG CAP PO SCH (06:14)
--- NOTE | 2022-04-29 08:23 | P.PN ---
Subjective Progress Note Date: 04/29/22 PROGRESS NOTE The patient is a 66 old female, followed by Dr. Edwards who was recently discharge from [facility] following aortic and mitral valve replacement and tricuspid valve repair. She presented to the hospital because of finding of anemia. She is feeling well this morning. She denies any chest discomfort, dizziness or palpitations. Her breathing is stable. Presurgery she had moderate severe mitral regurgitation with moderate mitral valve stenosis and moderate severe aortic valve regurgitation and chronic persistent atrial fibrillation. She underwent replacement of the aortic valve with a size 21 mm On-X valve in the mitral valve size 33 / 31 On-X mitral valve with repair of the tricuspid valve. She continues to be in sinus mechanism. Hemodynamically she is stable. She is well overall and anxious to go home. Her INR was above 4 on presentation and her Coumadin is on hold. Her echocardiogram on April 13 showed an ejection fraction of 60-65% with mechanical mitral and aortic valve replacement. She had an echocardiogram done yesterday that showed a normal systolic function with normal functioning of the mitral and aortic valve metallic valve and a mean gradient of 20 mmHg across the aortic valve. Medications: Aspirin 81 mg daily, Lipitor 20 mg daily, Bumex 1 mg daily, metoprolol tartrate 12-1/2 mg twice a day, Protonix. Her Coumadin is on hold. PHYSICAL EXAMINATION: Blood pressure 128/75 heart rate to 80 LUNGS: Clear to auscultation HEART: Regular rate and rhythm, metallic S1, S2. No S3. systolic ejection murmur ABDOMEN: Soft, nontender, no organomegaly EXTREMETIES: No edema LAB: Pending IMPRESSION: 1. Status post aortic and mitral valve replacement with tricuspid valve repair, stable 2. History of atrial fibrillation, maintaining sinus mechanism 3. Mild anemia, stable 4. Troponin elevation secondary to recent surgery PLAN: 1. Follow INR 2. Probable discharge home today and resume Coumadin when INR below 2.5 3. Continue other medications 4. Follow up with Dr. Edwards Objective - Vital Signs Vital signs: Vital Signs Temp 98 F 04/29/22 04:00 Pulse 80 04/29/22 04:00 Resp 12 04/29/22 04:00 BP 128/75 04/29/22 04:00 Pulse Ox 98 04/29/22 04:00 FiO2 Intake & Output 04/28/22 04/29/22 04/29/22 18:59 06:59 18:59 Intake Total 250 360 Output Total 600 700 Balance -350 -340 Weight 99.79 kg 99.3 kg Intake: Oral 250 360 Output: Urine 600 700 Other: # Voids 1 - Labs CBC & Chem 7: 04/27/22 23:54 04/27/22 23:54 Labs: Abnormal Lab Results - Last 24 Hours (Table) 04/28/22 04/28/22 04/28/22 Range/Units 05:59 10:17 16:30 Troponin I 0.215 H* 0.199 H* (0.000-0.034) ng/mL Urine Ketones 1+ H (Negative)
--- NOTE | 2022-04-29 08:29 | XR ---
EXAMINATION TYPE: XR chest 1V DATE OF EXAM: 04/29/2022 COMPARISON: 04/20/2022 INDICATION: CHF TECHNIQUE: Single frontal view of the chest is obtained. FINDINGS: The heart size is enlarged. The pulmonary vasculature is normal. Small bilateral pleural effusions are present some mild bibasilar atelectasis present. Sternotomy wir es from prior cardiac valve surgery are evident. Findings have improved over the interval. IMPRESSION: 1. Improving bibasilar infiltrates and small pleural effusions. 2. Cardiomegaly.
[2022-04-29] MEDS ORDERED: ASCORBIC ACID 500 MG TAB PO SCH (09:00)
[2022-04-29] MEDS ORDERED: METOPROLOL TARTRATE 25 MG TAB PO SCH (09:00)
[2022-04-29] MEDS ORDERED: ASPIRIN 81 MG PO SCH (09:00)
[2022-04-29] MEDS ORDERED: PANTOPRAZOLE 40 MG TABLET PO SCH (09:00)
[2022-04-29] MEDS: POTASSIUM CHLORIDE ER 20 MEQ TAB.ER PO SCH (09:19)
[2022-04-29] MEDS: MAGNESIUM OXIDE 400 MG TAB PO SCH (09:19)
[2022-04-29] MEDS: BUMETANIDE 1 MG TAB PO SCH (09:19)
[2022-04-29 09:52] LABS: Albumin 3.6 g/dL (3.5-5.0); Calcium 8.1 mg/dL (8.4-10.2); Magnesium 1.7 mg/dL (1.6-2.3); Phosphorus 2.9 mg/dL (2.5-4.5); Total Protein 6.8 g/dL (6.3-8.2)
[2022-04-29 10:05] LABS: Basophils # (A) 0.1 k/uL (0-0.2); Basophils % (A) 1 %; Eosinophils # (A) 0.1 k/uL (0-0.7); Eosinophils % (A) 1 %; HCT 29.2 % (34.0-46.0); HGB 9.1 gm/dL (11.4-16.0); Hypochromasia Marked; Lymphocytes # (A) 1.3 k/uL (1.0-4.8); Lymphocytes % (A) 14 %; MCH 29.2 pg (25.0-35.0); MCHC 31.1 g/dL (31.0-37.0); MCV 93.9 fL (80.0-100.0); Mean Platelet Volume 8.1; Monocytes % (A) 11 %; Neutrophils # (A) 6.2 k/uL (1.3-7.7); Neutrophils % (A) 70 %; Platelet Count 378 k/uL (150-450); Poikilocytosis Slight; RBC 3.11 m/uL (3.80-5.40); RDW 15.8 % (11.5-15.5); WBC 8.8 k/uL (3.8-10.6)
[2022-04-29 12:16] VITALS: BP 119/69; PULSE 78; RESP 12; TEMP 98.2
[2022-04-29] MEDS ORDERED: CEPHALEXIN 500 MG CAP PO SCH (21:00)
--- NOTE | 2022-05-01 09:42 | P.DS ---
Providers Date of admission: 04/28/22 00:50 Expected date of discharge: 04/29/22 Attending physician: Bertha Mora Consults: 04/28/22 00:50 Consult Physician Routine Consulting Provider: Roderick Rodriguez Consult Reason/Comments: nstemi Do you want consulting provider notified?: Yes Primary care physician: Ashlyn Pang Hospital Course: Final diagnosis Status post recent mitral valve and aortic valve surgery at [facility] Anemia Increased WBC Troponin elevated up to 0.274 Congestive heart failure, acute exacerbation Diabetes mellitus type 2 GERD hypertension Multiple transient ischemic attacks Full code Discharge disposition Patient is being discharged in a stable condition with guarded prognosis to home. Patient will follow-up with Dr. Pang in the outpatient setting upon discharge. Patient is to follow-up with cardiology at scheduled appointment and also prescription provided for repeat labs to monitor CBC. Total time taken is greater than 35 minutes. Hospital course This is a 66-year-old female who was recently admitted for findings of low hemoglobin that was reported by primary care provider and instructed to come to the hospital for further evaluation. Troponins were also mildly elevated and patient had features of CHF on x-ray. Patient was evaluated by cardiology and watch closely and recommending close outpatient follow-up in the outpatient s etting. Patient's INR was also elevated and adjusting Coumadin. Recommend repeat labs and INR along with CBC in the next 1-2 days for appropriate dosing. Patient was instructed to hold Coumadin today and follow-up with repeat labs to maintain INR of 2.5 and under. Patient reports to feeling well denies any dizziness, lightheadedness, shortness of breath and would like to go home. Hemoglobin on admission was 8.9 and is now 9.1 and did not receive any transfusions this admission. Currently no reports of chest pain, shortness of breath, or palpitations. Patient is afebrile. No reports of nausea or vomiting and patient is tolerating diet. Patient will be discharged home today and encouraged to follow-up with primary care provider this week. A copy of this dictation is being sent to her primary care office Dr. Pang. On exam vital signs are stable. Cardio S1, S2 are muffled. Respiratory system shows diminished breath sounds at the bases with no wheezing or rhonchi noted. Abdomen is soft and nontender. Nervous system shows no focal deficits. Please refer to medication reconciliation sheet for a list of medications. The impression and plan of care has been dictated by Dione Childs, Nurse Practitioner as directed. Dr. Morgan MD I have performed a history and examination and MDM of this patient, discussed the same with the dictator, and agree with the dictator's assessment and plan as written ,documented as a scribe. Based on total visit time, I have performed more than 50% of the visit. Patient Condition at Discharge: Stable Plan - Discharge Summary Discharge Rx Participant: Yes New Discharge Prescriptions: Continue Ascorbic Acid [Vitamin C] 500 mg PO DAILY Zinc 50 mg PO DAILY Albuterol Sulfate [Ventolin HFA] 2 puff INHALATION RT-Q6H PRN PRN Reason: Shortness Of Breath Alendronate Sodium [Fosamax] 70 mg PO MO Aspirin 81 mg PO DAILY Cyclobenzaprine [Flexeril] 5 mg PO HS Melatonin 6 mg PO HS Atorvastatin [Lipitor] 20 mg PO HS metFORMIN HCL 500 mg PO DAILY Omeprazole 20 mg PO DAILY Acetaminophen Tab [Tylenol] 650 mg PO Q6H PRN PRN Reason: Pain Bumetanide [BUMEX] 1 mg PO DAILY Magnesium 250 mg PO DAILY Potassium Chloride ER [K-Dur 20] 20 meq PO DAILY Sennosides/Docusate Sodium [Senna Plus 8.6-50 mg Tablet] 2 tab PO HS PRN PRN Reason: Constipation Cephalexin [Keflex] 500 mg PO QID Warfarin [Coumadin] 10 mg PO HS #0 Changed Metoprolol Tartrate [Lopressor] 25 mg PO BID 30 Days #60 tab Discharge Medication List Ascorbic Acid [Vitamin C] 500 mg PO DAILY 01/05/22 [History] Atorvastatin [Lipitor] 20 mg PO HS 01/05/22 [History] Omeprazole 20 mg PO DAILY 01/05/22 [History] Zinc 50 mg PO DAILY 01/05/22 [History] metFORMIN HCL 500 mg PO DAILY 01/05/22 [History] Acetaminophen Tab [Tylenol] 650 mg PO Q6H PRN 04/28/22 [History] Albuterol Sulfate [Ventolin HFA] 2 puff INHALATION RT-Q6H PRN 04/28/22 [History] Alendronate Sodium [Fosamax] 70 mg PO MO 04/28/22 [History] Aspirin 81 mg PO DAILY 04/28/22 [History] Bumetanide [BUMEX] 1 mg PO DAILY 04/28/22 [History] Cephalexin [Keflex] 500 mg PO QID 04/28/22 [History] Cyclobenzaprine [Flexeril] 5 mg PO HS 04/28/22 [History] Magnesium 250 mg PO DAILY 04/28/22 [History] Melatonin 6 mg PO HS 04/28/22 [History] Potassium Chloride ER [K-Dur 20] 20 meq PO DAILY 04/28/22 [History] Sennosides/Docusate Sodium [Senna Plus 8.6-50 mg Tablet] 2 tab PO HS PRN 04/28/22 [History] Metoprolol Tartrate [Lopressor] 25 mg PO BID 30 Days #60 tab 04/29/22 [Rx] Warfarin [Coumadin] 10 mg PO HS #0 04/29/22 [Rx] Follow up Appointment(s)/Referral(s): Ashlyn Pang MD [Primary Care Provider] - 1-2 days Richard Edwards MD [STAFF PHYSICIAN] - 05/12/22 Ambulatory/Diagnostic Orders: Complete Blood Count w/diff [LAB.AMB] Time Frame: 2 Days, Location: None Selected Patient Instructions/Handouts: Heart Failure (ER) Activity/Diet/Wound Care/Special Instructions: Activity Limited until follow-up Follow-up with primary care provider on discharge Follow-up cardiology as scheduled Continue taking medications as prescribed Hold Coumadin today as INR is 3.0 and recommend repeat labs in the next 1-2 days Recommend repeat labs of CBC, BMP, PT/INR, and lipase in 1-2 days Continue current diet Discharge Disposition: HOME SELF-CARE
[2022-05-04] MEDS ORDERED: NON FORMULARY DRUG (Alendronate Sodium [Fosamax] 70 MG Tablet) PO SCH (13:02)
--- NOTE | 2022-05-05 17:41 | CDI ---
Documentation Clarification Form Date: 05/05/2022 05:37:00 PM From: Slim Mcbride Phone: Admit Date: 04/28/2022 12:50:00 AM Patient Name: Nancy Jimenez Visit Number: [id number] Discharge Date: 04/29/2022 03:28:00 PM ATTENTION: The Clinical Documentation Specialists (CDI) and [facility] Coding Staff appreciate your assistance in clarifying documentation. Please respond to the clarification below the line at the bottom and electronically sign. The CDI & [facility] Coding staff will review the response and follow-up if needed. Please note: Queries are made part of the Legal Health Record. If you have any questions, please contact the author of this message via ITS. Dr. Bertha Mora Your patient has the documented diagnosis of unspecified CHF,acute exacerbation documented on Discharge Sum[place] . Additional information regarding the type, acuity of CHF is requested. History/Risk Factors: Clinical Indicators: Enlarged heart, systolic murmur VS/Pulse OX: 98 documented on progress notes 04/29/22 BNP: Echocardiogram Results: left ventricle, ejection fraction estimated at 50-55% Chest X Ray: done 04/29/02 showes enlarged heart, small bilateral pleural effusions, Sternotomy wires from prior cardiac valve surgery evident Treatment: bumex and toporal In your professional opinion, can you please clarify the [acuity and type] of CHF if known? [ ] Acute Systolic Heart Failure (reduced EF) [ ] Chronic Systolic Heart Failure (reduced EF) [ ] Acute on Chronic Systolic Heart Failure (reduced EF) [ ] Acute Diastolic Heart Failure (preserved EF) [ ] Chronic Diastolic Heart Failure (preserved EF) [ ] Acute on Chronic Diastolic Heart Failure (preserved EF) [ ] Acute Systolic & Diastolic Heart Failure [ ] Chronic Systolic & Diastolic Heart Failure [ ] Acute on Chronic Heart Failure Systolic & Diastolic Heart Failure [ ] Other, please specify [ ] Unable to determ Acute on Chronic Diastolic Heart Failure (preserved EF) ALLIED
== END 2022-04-29 15:28 | disposition home or self-care (01) ==
LOC: EC 19:33 → INTOOBSV 04-28 00:50 → 3SCARD 04-28 00:50 → 2SICU 04-28 09:37 → UNDODISIN 04-29 15:28
PROVIDERS: ADMIT Hospitalist; ATTEND Hospitalist
DX: I11.0 Hypertensive heart disease with heart failure (principal); I50.33 Acute on chronic diastolic (congestive) heart failure; R77.8 Other specified abnormalities of plasma proteins; D64.9 Anemia, unspecified; I27.20 Pulmonary hypertension, unspecified; J98.11 Atelectasis; E11.9 Type 2 diabetes mellitus without complications; I31.3 Pericardial effusion (noninflammatory); E78.5 Hyperlipidemia, unspecified; K21.9 Gastro-esophageal reflux disease without esophagitis; Z79.01 Long term (current) use of anticoagulants; Z91.040 Latex allergy status; Z79.899 Other long term (current) drug therapy; Z79.84 Long term (current) use of oral hypoglycemic drugs; Z86.73 Personal history of transient ischemic attack (TIA), and cerebral infarction without residual deficits; Z96.652 Presence of left artificial knee joint; Z80.9 Family history of malignant neoplasm, unspecified; Z95.2 Presence of prosthetic heart valve
CPT/HCPCS: 99285; 36415; 93005; 93306; 86900; 86901; 86902; 83880; 80053 ×2; 83605; 83690; 83735; 84100; 84484 ×2; 85025 ×2; 85610 ×2; 85730; 86850; 86870; 86880; 81003; 71045; 71046; G0378 ×2

== ENCOUNTER 2022-05-12 17:34 | Emergency (ER) | payer MEDICARE ==
[2022-05-12 17:59] VITALS: BP 129/65; PULSE 78; RESP 18; TEMP 98.2
[2022-05-12] MEDS ORDERED: PHYTONADIONE ORAL 5 MG/5 ML ORAL.SYRG PO STA (18:10)
--- NOTE | 2022-05-12 18:17 | ED ---
General Adult HPI - General Chief complaint: Recheck/Abnormal Lab/Rx Stated complaint: sent for Vitamin K shot Time Seen by Provider: 05/12/22 18:00 Source: patient, RN notes reviewed, old records reviewed Mode of arrival: ambulatory Limitations: no limitations - History of Present Illness Initial comments: This is a 66-year-old female who is on Coumadin for valvular surgery. Patient went to see the high school counselor today and her INR was greater than 10. The high school counselor sent the patient to the emergency department to get some vitamin K. I spoke with the patient and she had no symptoms she denied chest pain difficulty breathing or shortness of breath per patient denied any headache. Patient denies any numbness or weakness. Patient denied any black or bloody stools. Patient denied any abdominal pain. - Related Data Home Medications Medication Instructions Recorded Confirmed Ascorbic Acid [Vitamin C] 500 mg PO DAILY 01/05/22 04/28/22 Atorvastatin [Lipitor] 20 mg PO HS 01/05/22 04/28/22 Omeprazole 20 mg PO DAILY 01/05/22 04/28/22 Zinc 50 mg PO DAILY 01/05/22 04/28/22 metFORMIN HCL 500 mg PO DAILY 01/05/22 04/28/22 Acetaminophen Tab [Tylenol] 650 mg PO Q6H PRN 04/28/22 04/28/22 Albuterol Sulfate [Ventolin HFA] 2 puff INHALATION RT-Q6H PRN 04/28/22 04/28/22 Alendronate Sodium [Fosamax] 70 mg PO MO 04/28/22 04/28/22 Aspirin 81 mg PO DAILY 04/28/22 04/28/22 Bumetanide [BUMEX] 1 mg PO DAILY 04/28/22 04/28/22 Cephalexin [Keflex] 500 mg PO QID 04/28/22 04/28/22 Cyclobenzaprine [Flexeril] 5 mg PO HS 04/28/22 04/28/22 Magnesium 250 mg PO DAILY 04/28/22 04/28/22 Melatonin 6 mg PO HS 04/28/22 04/28/22 Potassium Chloride ER [K-Dur 20] 20 meq PO DAILY 04/28/22 04/28/22 Sennosides/Docusate Sodium [Senna 2 tab PO HS PRN 04/28/22 04/28/22 Plus 8.6-50 mg Tablet] Previous Rx's Medication Instructions Recorded Metoprolol Tartrate [Lopressor] 25 mg PO BID 30 Days #60 tab 04/29/22 Warfarin [Coumadin] 10 mg PO HS #0 04/29/22 Allergies Allergy/AdvReac Type Severity Reaction Status Date / Time latex Allergy Rash/Hives Verified 05/12/22 17:59 Review of Systems ROS Statement: Those systems with pertinent positive or pertinent negative responses have been documented in the HPI. ROS Other: All systems not noted in ROS Statement are negative. Past Medical History Past Medical History: CVA/TIA, Diabetes Mellitus, GERD/Reflux, Hypertension Additional Past Medical History / Comment(s): NUMEROUS MINI STROKES History of Any Multi-Drug Resistant Organisms: None Reported Past Surgical History: Section, Joint Replacement Additional Past Surgical History / Comment(s): LT TKA, BILAT KNEE ARTHROSCOPY, FCO-01/07/22, COLONOSCOPY, OPEN HEART Past Anesthesia/Blood Transfusion Reactions: No Reported Reaction Past Psychological History: No Psychological Hx Reported Smoking Status: Never smoker Past Alcohol Use History: None Reported Past Drug Use History: None Reported - Past Family History Mother Family Medical History: Cancer General Exam - General Exam Comments Initial Comments: GENERAL: Patient is well-developed and well-nourished. Patient is nontoxic and well- hydrated and is in no acute distress. ENT: Neck is soft and supple. No significant lymphadenopathy is noted. Oropharynx is clear. Moist mucous membranes. Neck has full range of motion without eliciting any pain. EYES: The sclera were anicteric and conjunctiva were pink and moist. Extraocular movements were intact and pupils were equal round and reactive to light. Eyelids were unremarkable. PULMONARY: Unlabored respirations. Good breath sounds bilaterally. No audible rales rhonchi or wheezing was noted. CARDIOVASCULAR: There is a regular rate and rhythm a valvular click is easily audible ABDOMEN: Soft and nontender with normal bowel sounds. SKIN: Skin is clear with no lesions or rashes and otherwise unremarkable. NEUROLOGIC: Patient is alert and oriented x3. Cranial nerves II through XII are grossly intact. Motor and sensory are also intact. MUSCULOSKELETAL: Normal extremities with adequate strength and full range of motion. LYMPHATICS: No significant lymphadenopathy is noted PSYCHIATRIC: Normal psychiatric evaluation. Limitations: no limitations Course Vital Signs 05/12/22 17:56 Temperature 98.2 F Pulse Rate 78 Respiratory 18 Rate Blood Pressure 129/65 O2 Sat by Pulse 98 Oximetry Disposition Clinical Impression: Coagulopathy Disposition: HOME SELF-CARE Condition: Good Instructions (If sedation given, give patient instructions): Hypercoagulation (ED) Additional Instructions: Patient is to hold Coumadin and follow up with cardiology as directed by cardiology. Patient is to return to the emergency department there is any headache, shortness of breath, chest pain black or bloody stools or any signs of bleeding. Is patient prescribed a controlled substance at d/c from ED?: No Referrals: Richard Edwards MD [Primary Care Provider] - 1-2 days Time of Disposition: 18:16
== END 2022-05-12 18:38 | disposition home or self-care (01) ==
LOC: EC 17:34
DX: D68.9 Coagulation defect, unspecified (principal); E11.9 Type 2 diabetes mellitus without complications; I10 Essential (primary) hypertension; K21.9 Gastro-esophageal reflux disease without esophagitis; Z86.73 Personal history of transient ischemic attack (TIA), and cerebral infarction without residual deficits; Z79.01 Long term (current) use of anticoagulants; Z79.84 Long term (current) use of oral hypoglycemic drugs; Z79.82 Long term (current) use of aspirin; Z79.51 Long term (current) use of inhaled steroids; Z79.899 Other long term (current) drug therapy
CPT/HCPCS: 99283

== ENCOUNTER → 2022-05-12 | Outpatient (CLI) | payer MEDICARE ==
[2022-05-12 16:17] LABS: INR >10.0 (<1.2)
[2022-05-12 16:22] LABS: Prothrombin Time >130.0 sec (9.0-12.0)
== END | disposition home or self-care (01) ==
LOC: LABWHC1 14:06
PROVIDERS: ATTEND Internal Medicine Cardiovascular Disease
DX: I48.0 Paroxysmal atrial fibrillation (principal)
CPT/HCPCS: 36415; 85610

== ENCOUNTER → 2022-07-02 | Outpatient (CLI) | payer MEDICARE ==
[2022-07-02 18:23] LABS: African American GFR (CKD) 86.4 (60.0-200.0); Anion Gap 10.8 mmol/L (10.00-18.00); BUN/Creat Ratio 16.28 Ratio (12.00-20.00); Blood Urea Nitrogen 13.2 mg/dL (9.0-27.0); Non-African American GFR(CKD) 74.5 (60.0-200.0)
== END | disposition home or self-care (01) ==
LOC: LABWHC1 11:34
PROVIDERS: ATTEND Internal Medicine Cardiovascular Disease
DX: I10 Essential (primary) hypertension (principal)
CPT/HCPCS: 36415; 80048

== ENCOUNTER → 2022-10-22 | Outpatient (CLI) | payer MEDICARE ==
[2022-10-22 18:49] LABS: HGB 11.2 g/dL (12.0-15.0); MCH 27.3 pg (27.0-32.0); MCHC 30.3 g/dL (32.0-37.0); MCV 90.2 fL (80.0-97.0); Mean Platelet Volume 9.8 fL (9.5-12.2); NRBC Per 100 WBC 0 /100 WBCS (0.0-0.0); Platelet Count 343 X 10*3/uL (140-440); RDW 15.6 % (11.5-14.5); WBC 7.02 X 10*3/uL (4.50-10.00)
[2022-10-22 18:57] LABS: ALT 27 U/L (8-44); AST 29 U/L (13-35); African American GFR (CKD) 76.1 (60.0-200.0); Albumin 4.2 g/dL (3.8-4.9); Albumin/Globulin Ratio 1.62 (1.60-3.17); Alkaline Phosphatase 78 U/L (41-126); BUN/Creat Ratio 17.44 Ratio (12.00-20.00); Blood Urea Nitrogen 15.7 mg/dL (9.0-27.0); Calcium 9.2 mg/dL (8.7-10.3); Carbon Dioxide 22.2 mmol/L (20.0-27.5); Chloride 102 mmol/L (96-109); Chol/HDL Ratio 3.31 Ratio; Globulin 2.6 g/dL (1.6-3.3); Glucose 106 mg/dL (70-110); LDL Cholesterol,Calculated 69.2 mg/dL (0.0-131.0); Non-African American GFR(CKD) 65.7 (60.0-200.0); Potassium 4.3 mmol/L (3.5-5.5); Sodium 138 mmol/L (135-145); Total Protein 6.8 g/dL (6.2-8.2)
[2022-10-22 19:25] LABS: Basophils # (A) 0.06 X 10*3/uL (0.00-0.10); Basophils % (A) 0.9 %; Eosinophils # (A) 0.26 X 10*3/uL (0.04-0.35); Eosinophils % (A) 3.7 %; Immature Grans, Automated 0.1 %; Lymphocytes % (A) 35.6 %; Monocytes # (A) 0.78 X 10*3/uL (0.20-1.00); Monocytes % (A) 11.1 %; Neutrophils # (A) 3.41 X 10*3/uL (1.80-7.70); Neutrophils % (A) 48.6 %; RBC Morphology NORMAL
[2022-10-22 20:28] LABS: Urine Creatinine 99.9 mg/dL (28.0-217.0)
== END | disposition home or self-care (01) ==
LOC: LABWHC1 12:17
PROVIDERS: ATTEND Internal Medicine Cardiovascular Disease
DX: I10 Essential (primary) hypertension (principal); E11.8 Type 2 diabetes mellitus with unspecified complications; E78.1 Pure hyperglyceridemia; E78.5 Hyperlipidemia, unspecified
CPT/HCPCS: 36415; 80053; 80061; 82043; 82570; 83036; 85025